=== PATIENT | male | born 1970 | race Caucasian/White ===

== ENCOUNTER 2020-04-11 01:13 | Emergency (ER) | payer OTHER ==
[~2020-04-11] VITALS: Ht 177.8 cm; Wt 86.2 kg
[~2020-04-11 01:13] MED LIST: AUGMENTIN TAB875 MG PO; CYCLOBENZAPRINE10 MG ORAL; IBUPROFEN600 MG ORAL; NKM
[2020-04-11 01:25] VITALS: BP 136/88
--- NOTE | 2020-04-11 01:25 | NUR ---
ED Nurse Note: Pt walked in c/o LLQ pain since 5-6 months. Pt stated he noticed a protrusion on his LLQ; denies n/v. Pt stated pain is worse since 04/11. Pt stated does a lot of heavy lifting at work.
[2020-04-11] MEDS ORDERED: IBUPROFEN600 M1 ORAL (01:37)
--- NOTE | 2020-04-11 01:38 | Emergency Room Report ---
History of Present Illness General Chief Complaint: Abdominal Pain Source: Patient Present Illness HPI This is a 49-year-old male with no past medical history. He presents with complaint abdominal pain. This been ongoing for at least 6 months. He said every time he does any heavy lifting or movement he felt Mass protruding from his left lower quadrant inguinal area. Is been hurting him more recently. Den ies any fever chills but no nausea no vomiting. No diarrhea. Pain is sharp in nature. 8 out of 10. Denies any other complaint. Allergies: Coded Allergies: No Known Allergies (Unverified , 04/11/20) COVID-19 Screening Contact w/high risk pt: No Experienced COVID-19 symptoms?: No COVID-19 Testing performed [employer]: No Patient History Past Medical History: see triage record, old chart reviewed Past Surgical History: none Pertinent Family History: none Social History: Denies: smoking Immunizations: other Reviewed Nursing Documentation: PMH: Agreed; PSxH: Agreed Nursing Documentation-PMH Past Medical History: No Stated History Review of Systems Eye: Denies: eye pain, blurred vision ENT: Denies: ear pain, nose congestion, throat swelling Respiratory: Denies: cough, shortness of breath Cardiovascular: Denies: chest pain, palpitations Gastrointestinal: Reports: abdominal pain; Denies: diarrhea, nausea, vomiting Musculoskeletal: Denies: back pain, joint pain Skin: Denies: rash Neurological: Denies: headache, numbness Endocrine: Denies: increased thirst, increased urine Hematologic/Lymphatic: Denies: easy bruising All Other Systems: negative except mentioned in HPI Physical Exam Vital Signs Date Time Temp Pulse Resp B/P (MAP) Pulse Ox O2 Delivery O2 Flow Rate FiO2 04/11/20 01:21 98.4 79 16 136/88 (104) 98 Room Air Vitals normal Sp02 EP Interpretation: reviewed, normal General Appearance: well appearing, no apparent distress, alert Head: normocephalic, atraumatic Eyes: bilateral eye PERRL, bilateral eye EOMI ENT: hearing grossly normal, normal pharynx Neck: full range of motion, supple, no meningismus Respiratory: chest non-tender, lungs clear, normal breath sounds Cardiovascular #1: regular rate, rhythm, no murmur Gastrointestinal: normal bowel sounds, non tender, no mass, no organomegaly, no bruit, non-distended Musculoskeletal: back normal, normal range of motion, gait/station normal Psychiatric: mood/affect normal Medical Decision Making Diagnostic Impression: Primary Impression: Hernia, inguinal, left ER Course Patient presents with symptoms consistent with a left inguinal hernia. Right now he is there is no protruding mass. This only occurs when he stands up or he does heavy lifting. No evidence of acute abdomen or obstruction. I see no need for emergent diagnostic study here. Last Vital Signs Date Time Temp Pulse Resp B/P (MAP) Pulse Ox O2 Delivery O2 Flow Rate FiO2 04/11/20 01:21 98.4 79 16 136/88 (104) 98 Room Air Status: unchanged Disposition: HOME, SELF-CARE Condition: Stable Scripts Ibuprofen* (MOTRIN*) 600 Mg Tablet 600 MG ORAL Q6H PRN for For Pain, #30 TAB 0 Refills Prov: Rony Perez MD 04/11/20 Additional Instructions: Follow-up your doctor in 7 days. You may need referral to see a surgeon. Return if symptoms worsen. Rony Perez MD Apr 11, 2020 01:38
[2020-04-11 01:45] VITALS: BP 136/88
--- NOTE | 2020-04-11 01:45 | NUR ---
ER DISCHARGE NOTE: Patient is cleared to be discharged per ERMD, pt is aox4, on room air, with stable vital signs. pt was given dc and prescription instructions, pt was able to verbalize understanding, pt id band removed. pt is able to ambulate with steady gait. pt took all belongings.
== END 2020-04-11 01:45 | disposition home or self-care (01) ==
LOC: EMR 01:39
DX: K40.90 Unilateral inguinal hernia, without obstruction or gangrene, not specified as recurrent (principal)
CPT/HCPCS: 99282